=== PATIENT | male | born 1990 | race Two or more races ===

== ENCOUNTER → 2018-09-12 | Outpatient (CLI) | payer OTHER ==
--- NOTE | 2018-09-12 14:46 | RADIOLOGY IMAGING REPORT ---
FACILITY: [facility] PATIENT NAME: Ramakrishna Maldonado : 1990 MR: [id number] V: [id number] EXAM DATE: [id number] ORDERING PHYSICIAN: DARIA GNUYEN TECHNOLOGIST: Location: [facility] [place] Patient: Ramakrishna Maldonado : 1990 Visit/Account:[id number] Date of Sevice: 09/12/2018 THYROID HISTORY: left neck mass COMPARISON: None. FINDINGS: SIZE: Normal. Right lobe: 4 x 2.1 x 2.1 cm Left lobe: 5.4 x 1.2 x 2.1 cm Isthmus: 3 mm PARENCHYMA: Homogeneous. NODULES: Right lobe: * There is a 6 x 2 x 3 mm calcification in the mid right lobe Left lobe: * None discrete. Isthmus: * None discrete. VASCULARITY: Within normal limits. ADDITIONAL FINDINGS: None. IMPRESSION: There is a 6 mm calcification in the mid right lobe. A left-sided neck mass was not demonstrated. I f this remains of strong clinical concern a CT of the neck with contrast is recommended REFERENCE: 2015 [place] [employer] Management Guidelines for Adult Patients with Thyroid Nodules and D ifferentiated Thyroid Cancer: The [place] [employer] Guidelines Task Force on Thyroid Nodul es and Differentiated Thyroid Cancer. SONOGRAPHIC PATTERNS: * Benign: Purely cystic nodules (no solid component); estimated risk of malignancy <1 percent; no bi opsy recommended. * Very Low Suspicion: Spongiform or partially cystic nodules without any of the sonographic features described in low, intermediate, or high suspicion patterns; estimated risk of malignancy <3 percent; consider FNA at > 2 cm (Observation without FNA is also a reasonable option). * Low Suspicion: Isoechoic or hyperechoic solid nodule, or partially cystic nodule with eccentric so lid areas, without microcalcification, irregular margin or ETE (extra-thyroidal extension), or taller than wide shape; estimated risk of malignancy 5-10 percent; recommend FNA at >1.5 cm. * Intermediate Suspicion: Hypoechoic solid nodule with smooth margins without microcalcifications, E TE (extra-thyroidal extension), or taller than wide shape; estimated risk of malignancy 10-20 percent ; recommend FNA at > 1 cm. * High Suspicion: Solid hypoechoic nodule or solid hypoechoic component of a partially cystic nodule with one or more of the following features: irregular margins (infiltrative, microlobulated), microc alcifications, taller than wide shape, rim calcifications with small extrusive soft tissue component, evidence of ETE (extra-thyroidal extension); estimated risk of malignancy >70-90 percent; recommend FNA at > 1 cm. NOTES: * Although a sonographically suspicious subcentimeter thyroid nodule without evidence of extrathyroi heidi extension or sonographically suspicious lymph nodes may be observed with close sonographic follow -up rather than pursuing immediate FNA, patient age and preference may modify decision-making. A > 50% interval increase in nodule volume and/or development of new suspicious sonographic features are felt to be a valid reasons for potential re-aspiration of a nodule previously shown to have benig n FNA cytology. Report Dictated By: Ashley Gonzalez MD at 09/12/2018 2:40 PM Report E-Signed By: Ashley Gonzalez MD at 09/12/2018 2:42 PM WSN:[email or web address]
--- NOTE | 2018-09-12 14:49 | RADIOLOGY IMAGING REPORT ---
FACILITY: [facility] PATIENT NAME: Ramakrishna Maldonado : 1990 MR: [id number] V: [id number] EXAM DATE: ORDERING PHYSICIAN: DARIA NGUYEN TECHNOLOGIST: Location: [facility] Patient: Ramakrishna Maldonado : 1990 Visit/Account:[id number] Date of Sevice: 09/12/2018 Exam type: SOFT TISSUE HEAD NECK History: left neck mass Comparison: None. Findings: No pathologically enlarged cervical lymph nodes were demonstrated bilaterally. There was no demonstr ation of a cystic or solid neck mass IMPRESSION: 1. No demonstration of a neck mass or abnormal appearing cervical lymph nodes. If this remains a st gregg clinical concern a CT of the neck with contrast may be helpful Report Dictated By: Ashley Gonzalez MD at 09/12/2018 2:42 PM Report E-Signed By: Ashley Gonzalez MD at 09/12/2018 2:45 PM WSN:[email or web address]
== END ==
LOC: US 11:46
PROVIDERS: ATTEND Surgery
DX: E04.1 Nontoxic single thyroid nodule (principal)
CPT/HCPCS: 76536